=== PATIENT | male | born 1960 | race Caucasian/White ===

== ENCOUNTER 2016-10-18 05:24 | Day surgery (SDC) | payer BC ==
[2016-10-09 10:12] VITALS: BMI 42.0
--- NOTE | 2016-10-09 10:48 | PAT Medication Instructions ---
Service Date Oct 09, 2016. Current Home Medication List No Active Prescriptions or Reported Meds Medication Instructions For Your Scheduled Surgery No Active Prescriptions or Reported Meds- Patient advised to contact PAT department if starting any new medications prior to surgery. If you have any questions please call us at [phone] (Astrid Limon PA-C) or [phone] or [phone]
[2016-10-09 11:20] LABS: BASO % 1.1 %; BASO ABS # 0.08 K/uL (0-0.2); COMPLETE YES; EOS % 2.4 %; HEMATOCRIT 44.2 % (42-52); IG% 0.3 %; LYMPH % 37.2 %; LYMPH ABS # 2.77 K/uL (1.2-3.4); MEAN CELL VOLUME 89.5 fL (80-100); MEAN CORPUSCULAR HEMOGLOBIN 32.4 pg (25-34); MEAN CORPUSCULAR HGB CONC 36.2 g/dl (32-36); MONO % 8.9 %; NEUT % 50.1 %; PLATELET COUNT 295 K/uL (130-400); RED BLOOD COUNT 4.94 M/uL (4.7-6.1); WHITE BLOOD COUNT 7.44 K/uL (4.8-10.8)
[2016-10-09 11:36] LABS: PARTIAL THROMBOPLASTIN RATIO 1.1; PROTHROMBIN TIME (PATIENT) 10.9 SECONDS (9.0-12.0)
[2016-10-09 11:41] LABS: BUN/CREATININE RATIO 12.4 (10-20); CALCIUM 8.6 mg/dl (8.5-10.1); CREATININE 0.87 mg/dl (0.60-1.40); POTASSIUM 4.2 mmol/L (3.5-5.1)
[2016-10-09 11:42] LABS: URINE APPEARANCE CLEAR (CLEAR); URINE BILIRUBIN NEG (NEG); URINE COLOR YELLOW; URINE NITRITE NEG (NEG); URINE PH 5.5 (4.5-7.5); URINE SPECIFIC GRAVITY 1.022 (1.000-1.030); UROBILINOGEN NEG (NEG)
[2016-10-09 11:46] LABS: MANUAL MICROSCOPIC REQUIRED? NO; REVIEW REQ? NO
--- NOTE | 2016-10-17 14:01 | HISTORY & PHYSICAL EXAMINATION ---
DATE OF ADMISSION: 10/18/2016 CHIEF COMPLAINT: Left shoulder pain. HISTORY OF PRESENT ILLNESS: The patient is a 56-year-old gentleman seen and evaluated in our office for left shoulder pain and disability. He presented with an MRI. The MRI demonstrated a full thickness rotator cuff tear. It also demonstrates evidence of AC joint arthritis. Due to ongoing pain and disability, the patient is now scheduled for left shoulder arthroscopy, subacromial decompression, distal clavicle excision and rotator cuff repair as indicated. PAST MEDICAL HISTORY: Acid reflux, history of PE, pleural effusion. PAST SURGICAL HISTORY: Right knee ACL reconstruction, cholecystectomy, and chest tube placement. MEDICATIONS: Tramadol p.r.n., Aleve p.r.n. ALLERGIES: No known drug allergies. SOCIAL HISTORY: He states weekly tobacco use. REVIEW OF SYSTEMS: Noncontributory. PHYSICAL EXAMINATION: GENERAL: Well-nourished, well-developed, obese male who appears stated age. HEENT: Normocephalic, atraumatic, extraocular movements intact, oropharynx pink and moist. NECK: Supple without adenopathy. LUNGS: Clear to auscultation bilaterally. HEART: Regular rate and rhythm. ABDOMEN: Soft, nontender, nondistended, obese. EXTREMITIES: The left shoulder demonstrates full painful range of motion. There is weakness in the rotator cuff with resistive testing. He has tenderness to palpation about the AC joint. X-RAYS: X-rays and MRI are reviewed. The plain films are within normal limits. The MRI shows a small full thickness supraspinatus tear. There is also evidence of acromioclavicular joint arthritis. ASSESSMENT: Left shoulder rotator cuff tear and acromioclavicular joint arthritis. PLAN: Risks versus benefits were discussed. Consent was obtained. The patient's primary care physician is Dr. Maninder Petty. We will proceed with left shoulder arthroscopy, subacromial decompression, distal clavicle excision and rotator cuff repair as indicated upon preoperative workup and medical clearance.
[~2016-10-18] VITALS: Ht 182.9 cm; Wt 140.7 kg
[2016-10-18 05:44] VITALS: BP 171/89; PULSE 79; TEMP 36.7; O2SAT 97; Ht 182.9 cm; Wt 140.7 kg
[2016-10-18] MEDS ORDERED: CEFAZOLIN 3000 MG/65 ML D5W IV SCH (06:00)
[2016-10-18] MEDS ORDERED: LACTATED RINGER'S 1000ML 1,000 ML IV SCH (06:00)
[2016-10-18] MEDS ORDERED: ROPIVACAINE 0.5% 5 MG/ML 30 ML VIAL ONE (06:17)
[2016-10-18] MEDS ORDERED: DEXAMETHASONE SOD INJ 4 MG/ML VIAL ONE (06:34)
[2016-10-18] MEDS ORDERED: ONDANSETRON INJ 2 MG/ML 2 ML VIAL ONE (06:34)
[2016-10-18] MEDS ORDERED: FENTANYL CITRATE INJ 50 MCG/1 ML 2 ML VIAL ONE (06:34)
[2016-10-18] MEDS ORDERED: PROPOFOL IV EMULSION 10 MG/ML 20 ML VIAL IV ONE (06:34)
[2016-10-18] MEDS ORDERED: LIDOCAINE HCL 2% 2 ML VIAL (20MG/ML) ONE (06:34)
[2016-10-18] MEDS ORDERED: MIDAZOLAM HCL 1 MG/ML 2ML VIAL ONE (06:34)
--- NOTE | 2016-10-18 06:57 | History & Physical Bridge Note ---
H&P Re-Evaluation Bridge Note: I have examined the patient, reviewed the History & Physical and in the interval since the performance of the History & Physical I have noted the following changes of clinical significance: No changes noted
[2016-10-18] MEDS ORDERED: ATROPINE SULFATE 0.1 MG/ML 5ML SYR IV PRN (07:00)
[2016-10-18] MEDS ORDERED: FENTANYL CITRATE INJ 50 MCG/1 ML 2 ML VIAL IV PRN (07:00)
[2016-10-18] MEDS ORDERED: EpHEDrine SULFATE INJ 50 MG/ML AMP IV PRN (07:00)
[2016-10-18] MEDS ORDERED: ONDANSETRON INJ 2 MG/ML 2 ML VIAL IV PRN (07:00)
--- NOTE | 2016-10-18 08:21 | [facility] Post Operative Brief Note ---
Immediate Operative Summary Operative Date Oct 18, 2016. Pre-Operative Diagnosis Left shoulder rotator cuff tear, acromioclavicular joint arthritis Post-Operative Diagnosis Left shoulder rotator cuff tear, acromioclavicular joint arthritis Procedure(s) Performed Left Shoulder Arthroscopic Subacromial Decompression, Distal Clavicle Excision, Rotator Cuff Repair Surgeon Dr. Stoddard [employer]s Payables Clerk Surgeon(s) David Gustafson PA-C Estimated Blood Loss 30cc Findings as above Specimens none Disposition Recovery Room / PACU
[2016-10-18] MEDS ORDERED: SODIUM CHLORIDE 0.9% 1000ML 1,000 ML IV SCH (08:29)
[2016-10-18] MEDS ORDERED: OXYCODONE/ACETAMINOPHEN 5-325 TAB PO PRN (08:30)
[2016-10-18] MEDS ORDERED: HYDROCODONE/ACETAMOPHEN 5/325MG TAB PO PRN (08:30)
--- NOTE | 2016-10-18 08:30 | OPERATIVE REPORT ---
DATE OF OPERATION: 10/18/2016 PREOPERATIVE DIAGNOSIS: Long head of the biceps tendonitis, rotator cuff tear and AC arthritis. POSTOPERATIVE DIAGNOSIS: Long head of the biceps tendonitis, rotator cuff tear and AC arthritis. PROCEDURE: Arthroscopic long head of biceps tenotomy, subacromial decompression, rotator cuff repair and distal clavicle excision. SURGEON: Dr. Stoddard. ASSEMBLY LINE UPHOLSTERER: David Gustafson PA-C. ANESTHESIA: General. COMPLICATIONS: None. OPERATION AND FINDINGS: PROCEDURE: Following induction of adequate general anesthesia, the patient was placed in the beach chair position and the left shoulder was prepped and draped in usual sterile manner. Posterior incision was used for insertion of the arthroscope. Severe tendonitis of the long head of the biceps tendon was encountered. A anterior portal was established and the long head of biceps tenotomy was carried out using both shaver blade and 90 degree ablator. The rotator cuff tear was identified from the undersurface. The glenohumeral joint had mild degenerative changes. The arthroscope was then placed in subacromial space where abundant bursitis was encountered. Bursectomy was carried out using a 90 degree ablator and a 5.5 mm samina was used for an arthroscopic subacromial decompression. The bur was then utilized to expose subchondral bone at the attachment point for the rotator cuff and using a single 4.5 mm Healicoil anchor the rotator cuff was repaired. This was taken to a footprint creating a double row repair, watertight repair was obtained. Following this, through the anterior portal additional bursitis was removed from the undersurface of the distal clavicle and a distal clavicle excision was carried out using a 5.5 mm samina. The wound was irrigated and the arthroscope was withdrawn. Wounds were closed using 4-0 nylon simple sutures. Sterile dressing of Adaptic, 4x4s, ABDs, foam tape and Velpeau sling was applied. The patient tolerated the procedure well. I attest to the content of the Intraoperative Record and any orders documented therein. Any exceptio ns are noted below.
[2016-10-18] MEDS ORDERED: OXYC-57 PO (08:31)
--- NOTE | 2016-10-18 08:33 | Discharge Instructions ---
Discharge Instructions Visit Reason for Visit: Left Shoulder Impingement Syndrome, Acromioclavicu Discharge Discharge Diagnosis / Problem: left shoulder rotator cuff tear, AC joint arthritis Discharge Goals Goal(s): Decrease discomfort, Improve function Activity Recommendations Activity Limitations: as noted below Anesthesia . Post Anesthesia Instructions: If you have had General Anesthesia or IV Sedation: * Do not drive today. * Resume driving when surgeon permits. * Do not make important decisions or sign legal documents today. * Call surgeon for: 1. Temperature elevations greater than 101 degrees F. 2. Uncontrollable pain. 3. Excessive bleeding. 4. Persistent nausea and vomiting. 5. Medication intolerance (nausea, vomiting or rash). * For nausea and vomiting use only clear liquids such as: tea, soda, bouillon until nausea subsides, then gradually increase diet as tolerated. * If you have any concerns or questions, call your surgeon's office. If physician is unavailable and it is an emergency, call 911 or go to the nearest emergency room. . Instructions / Follow-Up Instructions / Follow-Up U DISCHARGE INSTRUCTIONS: ROTATOR CUFF REPAIR SELF CARE INSTRUCTIONS A. You are permitted to loosen your sling/immobilizer to move your elbow, wrist , and hand to prevent stiffness. You should use your well arm (good arm) to assist the operated extremity when trying to raise the arm away from the body, hygiene purposes. Do NOT actively try to use/engage your shoulder muscles in operative arm at this time. You should NOT do overhead activity, lifting, or attempt to reach behind your back. B. You may/may not be instructed to start Physical Therapy upon discharge depending upon the size and difficulty of the repair. You will be provided a prescription for therapy with specific restrictions, if needed, at time of discharge. C. At 48 hours post-operatively, you may change your dressing. (Leave white steri-strips intact if present). Use band-aids and change daily. You are allowed to shower at this time and get the incision area wet, but DO NOT soak or submerge incision area in water. (No baths, swimming pools, hot tubs) D. Do NOT apply soap or any ointment/lotions directly over incision. E. You may use ice as needed to operative shoulder SPECIAL CARE INSTRUCTIONS: VERY IMPORTANT TO READ AND REVIEW A. There are a few signs you need to watch for after you are home. Call [facility] at [phone] if you experience any of the following: a. Increased severe shoulder pain. Some pain is expected especially when you exercise b. Increased swelling in your shoulder or arm; pain or swelling in either upper extremity. (Note: swelling and stiffness is normal and expected for several weeks post op, depending on type of shoulder surgery you had). c. Any fluid or drainage from the incision; redness of the incision. d. Shortness of breath or chest pain. B. Please call [facility] at [phone] if you have any questions or concerns about your operation or recovery. C. Call your physician if: a. Temperature is greater than 101 degrees (F). b. Pain is not relieved by prescribed pain medications. c. Increase drainage or redness from incision. d. Unanswered questions or concerns. D. Pain Medication: a. You will be prescribed pain medication upon discharge that should last till your first post-operative appointment. b. If you experience nausea and/or skin rash, discontinue this medication and contact our office for an alternative medication. c. Caution- narcotic pain medication can cause constipation. FOLLOW UP VISIT: Please call [facility] at [phone] to schedule a follow up appointment 10-14 days from your surgery date. Diet Recommendations Recommended Home Diet: resume previous diet Procedures Procedures Performed: Left Shoulder Arthroscopic Subacromial Decompression, Long head bicep tenotomy, Distal Clavicle Excision, Rotator Cuff Repair Medical Emergencies . Who to Call and When: Medical Emergencies: If at any time you feel your situation is an emergency, please call 911 immediately. . Non-Emergent Contact Non-Emergency issues call your: Surgeon Call Non-Emergent contact if: temperature is above 101.5, your pain is not controlled, wound has increased drainage, wound has increased redness . . "Provider Documentation" section prepared by [facility] [employer] Search Results: patient reviewed within database
[2016-10-18 09:10] VITALS: BP 127/78; PULSE 68; TEMP 36.2; O2SAT 97
--- NOTE | 2016-10-18 09:35 | Anesthesiology Progress Note ---
Anesthesia Post Op Note Date & Time Oct 18, 2016 at 09:35 Vital Signs Pain Intensity: 0 Vital Signs Past 12 Hours Date Time Temp Pulse Resp B/P Pulse Ox O2 Delivery O2 Flow Rate FiO2 10/18/16 09:10 36.2 68 18 127/78 97 Room Air 10/18/16 09:04 146/87 10/18/16 09:01 71 19 10/18/16 09:01 69 19 98 10/18/16 08:59 149/92 10/18/16 08:56 75 20 98 10/18/16 08:56 74 20 10/18/16 08:55 76 20 10/18/16 08:55 77 20 98 10/18/16 08:54 148/93 10/18/16 08:50 77 14 10/18/16 08:50 75 14 98 10/18/16 08:49 153/92 10/18/16 08:45 75 18 100 10/18/16 08:45 74 18 10/18/16 08:44 71 20 10/18/16 08:44 70 20 138/85 100 10/18/16 08:39 74 19 136/82 10/18/16 08:39 19 10/18/16 08:34 67 16 145/86 100 10/18/16 08:34 68 16 10/18/16 08:29 74 19 138/87 100 10/18/16 08:29 36.4 76 20 148/87 100 Mask 10 10/18/16 08:29 74 19 10/18/16 05:44 36.7 79 20 171/89 97 Room Air Notes Mental Status: alert / awake / arousable, participated in evaluation Pt Amnestic to Procedure: Yes Nausea / Vomiting: adequately controlled Pain: adequately controlled Airway Patency, RR, SpO2: stable & adequate BP & HR: stable & adequate Hydration State: stable & adequate Anesthetic Complications: no major complications apparent
[2016-10-18 09:39] VITALS: BP 128/70; PULSE 76; O2SAT 98
[2016-10-18 10:10] VITALS: BP 138/74; PULSE 69; TEMP 36.2; O2SAT 96
[2016-10-18] MEDS ORDERED: HYDR-5688 PO (10:44)
== END 2016-10-18 10:50 | disposition home or self-care (01) ==
LOC: C.ACU 05:24
DX: M75.102 Unspecified rotator cuff tear or rupture of left shoulder, not specified as traumatic (principal); M75.22 Bicipital tendinitis, left shoulder; M19.019 Primary osteoarthritis, unspecified shoulder; K21.9 Gastro-esophageal reflux disease without esophagitis; J91.8 Pleural effusion in other conditions classified elsewhere; Z86.711 Personal history of pulmonary embolism; Z98.890 Other specified postprocedural states